=== PATIENT | male | born 1940 | race Caucasian/White ===

== ENCOUNTER 2024-10-13 19:21 | Observation (INO) | payer MEDICARE, OTHER ==
[2024-10-13 19:53] VITALS: BMI 19.0
[2024-10-13] MEDS ORDERED: Acetaminophen 325 MG TAB PO PRN (20:14)
[2024-10-13] MEDS ORDERED: Melatonin 3 MG TAB PO PRN (20:14)
[2024-10-13] MEDS ORDERED: Ondansetron PF 4 MG/2 ML Vial IVP PRN (20:14)
[2024-10-13] MEDS ORDERED: Guaifenesin DM 100-10/5 ML UDCUP PO PRN (20:14)
[2024-10-13] MEDS ORDERED: Diltiazem HCl/D5W 125 MG in Premix 1 BAG IVPB SCH (20:30)
[2024-10-13 21:04] LABS: Anion Gap 14 mmol/L (10-20); BUN (Urea Nitrogen) 11 mg/dL (8.4-25.7); Calc. Creatinine Clearance 53 mL/min (70-130); Calcium 9.2 mg/dL (7.8-10.44); Carbon Dioxide 23 mmol/L (23-31); Chloride 99 mmol/L (98-107); Glucose 99 mg/dL (83-110); Magnesium 1.8 mg/dL (1.6-2.6); Potassium 4.0 mmol/L (3.5-5.1); Sodium 132 mmol/L (136-145)
[2024-10-13] MEDS: Mirtazapine 15 MG TAB PO SCH (21:13)
[2024-10-14 05:30] LABS: Anion Gap 14 mmol/L (10-20); BUN (Urea Nitrogen) 11 mg/dL (8.4-25.7); Calc. Creatinine Clearance 52 mL/min (70-130); Calcium 9.0 mg/dL (7.8-10.44); Carbon Dioxide 23 mmol/L (23-31); Chloride 100 mmol/L (98-107); Glucose 96 mg/dL (83-110); Magnesium 1.9 mg/dL (1.6-2.6); Potassium 4.3 mmol/L (3.5-5.1); Sodium 133 mmol/L (136-145)
[2024-10-14] MEDS: Enoxaparin 60 MG (0.6 mL) SYRINGE SC SCH (05:54)
[2024-10-14] MEDS: Aspirin 81 mg Enteric Coated Tablet PO SCH (09:43)
[2024-10-14] MEDS: Pantoprazole 40 MG DR.TAB PO SCH (09:43)
[2024-10-14] MEDS: dilTIAZem 30 MG TAB PO SCH (13:17)
[2024-10-14] MEDS: Magnesium 2 GM/50 ML(in water) 2 GM in Premix 1 BAG IVPB SCH (13:18)
[2024-10-14 15:25] VITALS: BP 141/77
[2024-10-14 15:27] VITALS: TEMP 97.4
[2024-10-14] MEDS ORDERED: Apixaban 2.5 MG TAB PO SCH (21:00)
== END 2024-10-14 17:37 | disposition home or self-care (01) ==
LOC: INTOOBSV 19:21 → 2NO 19:21
PROVIDERS: ADMIT Family Medicine; ATTEND Internal Medicine
DX: I48.91 Unspecified atrial fibrillation (principal); I10 Essential (primary) hypertension; E78.5 Hyperlipidemia, unspecified; Z87.891 Personal history of nicotine dependence; Z98.52 Vasectomy status; Z90.89 Acquired absence of other organs; Z98.49 Cataract extraction status, unspecified eye; Z79.82 Long term (current) use of aspirin; Z79.02 Long term (current) use of antithrombotics/antiplatelets; Z79.01 Long term (current) use of anticoagulants; Z79.899 Other long term (current) drug therapy
CPT/HCPCS: 80048 ×2; 83735 ×2; 84443; 84484; 96372; 96374; G0378 ×2; J1650; J3475; J7030; 36415